=== PATIENT | female | born 2000 | race Caucasian/White ===

== ENCOUNTER 2025-08-08 08:57 | Outpatient (CLI) | payer OTHER ==
[2025-08-08 08:59] LABS: RH POSITIVE
== END 2025-08-08 08:58 | disposition home or self-care (01) ==
LOC: LAB 08:57
PROVIDERS: ATTEND Obstetrics & Gynecology
DX: O09.91 Supervision of high risk pregnancy, unspecified, first trimester (principal)

== ENCOUNTER 2025-11-07 10:05 | Outpatient (CLI) | payer OTHER ==
[2025-11-07 10:35] LABS: BASO % 0.2 % (0.1-1.2); EOS # 0.00 (0.04-0.54); EOS % 0.0 % (0.7-7.0); LYMPH # 0.73 (1.18-3.74); LYMPH % 12.6 % (19.3-53.1); MEAN PLATELET VOLUME 9.00 fl (9.4-12.4); MONO # 0.65 (0.24-0.82); MONO % 11.2 % (4.7-12.5); NEUT # 4.38 (1.56-6.13); NEUT % 75.5 % (34.0-71.1); RED CELL DISTRIBUTION WIDTH 11.8 % (11.6-14.4)
[2025-11-07 10:41] LABS: URINE APPEARANCE Cloudy; URINE BILIRRUBIN Negative (NEGATIVE); URINE BLOOD Trace; URINE COLOR Dark Yellow; URINE GLUCOSE Negative (NEGATIVE); URINE LEUKOCYTE Large; URINE NITRATE Negative; URINE PROTEIN 30 (NEGATIVE); URINE UROBILINOGEN 1.0 E.U./dl
[2025-11-07 10:45] LABS: URINE EPITHELIAL CELLS 76.0 uL (0.0-38.8); URINE RBC 22.2 uL (0.0-20.8); URINE WBC 101.6 uL (0.0-23.2)
[2025-11-07 11:00] LABS: URINE BACTERIA > 9821.5 uL (0.0-1933); URINE CAST 0.70 uL (0.0-1.40); URINE KETONE >=160 (NEGATIVE)
[2025-11-07 11:02] LABS: URINE CRYSTALS FEW /HPF
[2025-11-07 11:03] LABS: COVID-19 AG NEGATIVE (NEGATIVE)
[2025-11-07 11:18] LABS: GLUCOSE RANDOM 92 mg/dL (65-100)
[2025-11-07 11:40] LABS: MYCOPLASMA PNEUMONIAE IGM REACTIVE (NO REACTIVE)
== END 2025-11-07 10:11 | disposition home or self-care (01) ==
LOC: LAB 10:05
PROVIDERS: ATTEND Obstetrics & Gynecology
DX: O09.72 Supervision of high risk pregnancy due to social problems, second trimester (principal)

== ENCOUNTER 2025-11-10 07:55 | Emergency (ER) | payer OTHER ==
[~2025-11-10] VITALS: Ht 167.6 cm; Wt 77.6 kg
[2025-11-10] MEDS ORDERED: PRENATA CHEWAB1 EACH (08:15)
[2025-11-10] MEDS ORDERED: CHOLINE500 M1 (08:16)
[2025-11-10] MEDS ORDERED: 0.9 % SODIUM CHLORIDE 1,000 ML IV STA (08:40)
[2025-11-10] MEDS ORDERED: FAMOTIDINE/PF 20 MG/2 ML VIAL IV STA (08:40)
[2025-11-10] MEDS ORDERED: LEVALBUTEROL HCL 0.63 MG/3 ML SOLUTION IH SCH (08:45)
[2025-11-10 09:13] LABS: BASO % 0.2 % (0.1-1.2); EOS # 0.02 (0.04-0.54); EOS % 0.4 % (0.7-7.0); LYMPH # 1.32 (1.18-3.74); LYMPH % 28.9 % (19.3-53.1); MEAN PLATELET VOLUME 9.00 fl (9.4-12.4); MONO # 0.37 (0.24-0.82); MONO % 8.1 % (4.7-12.5); NEUT # 2.82 (1.56-6.13); NEUT % 62.0 % (34.0-71.1); RED CELL DISTRIBUTION WIDTH 12.2 % (11.6-14.4)
[2025-11-10 09:14] LABS: ERYTHROCYTE SEDIMENTATION RATE 12 mm/hr (0-20)
[2025-11-10 10:05] LABS: ALT/SGPT 40.0 U/L (12-78); AST/SGOT 27.0 U/L (15-37); BILIRUBIN TOTAL 0.79 mg/dL (0.3-1.2); BUN CREA RATIO 22.0 (7.0-25.0); CREATININE SERUM 0.41 mg/dL (0.55-1.02); GFR 189.02; GLOBULINA 3.9 G/DL (2.4-3.5); GLUCOSE FASTING 88.0 mg/dL (65-100); OSMOLALITY SERUM 279.0 MOSM/KG (275-295)
[2025-11-10 10:12] LABS: COVID-19 AG NEGATIVE (NEGATIVE)
== END 2025-11-10 12:50 | disposition home or self-care (01) ==
LOC: ER 07:55
PROVIDERS: Physician Assistant Medical
DX: O99.512 Diseases of the respiratory system complicating pregnancy, second trimester (principal); J10.1 Influenza due to other identified influenza virus with other respiratory manifestations; O26.899 Other specified pregnancy related conditions, unspecified trimester; R10.20 Pelvic and perineal pain unspecified side; Z3A.23 23 weeks gestation of pregnancy; Z20.822 Contact with and (suspected) exposure to COVID-19